=== PATIENT | female | born 1970 | race Caucasian/White ===

== ENCOUNTER → 2016-03-20 | Outpatient (CLI) | payer OTHER ==
--- NOTE | 2016-03-20 13:08 | MR ---
EXAMINATION TYPE: MR pelvis wo/w con DATE OF EXAM: 03/20/2016 8:52 AM COMPARISON: NONE HISTORY: pelvic girdle pain CONTRAST: Standard multiplanar, multisequence MRI departmental protocol utilizing 19 mL intravenous MultiHance gadolinium contrast. FINDINGS: The uterus is anteflexed and measures 10 cm in craniocaudal dimension by 4.6 cm. Endometria l stripe measures 6 mm. No uterine masses are identified. Cervical nabothian cyst is identified which measures 6.2 mm. No evidence for solid ovarian or adnexal mass. Small functional ovarian cysts are n oted bilaterally in measuring 1.6 cm on the left and up to 2 cm on the right. There is no evidence fo r free fluid. Following contrast administration no pathologic enhancement is identified. No uterine m ass is seen. Within the pelvis the urinary bladder has a normal appearance. There is no evidence for pelvic adenopathy. IMPRESSION: 1. Functional ovarian cysts. 2. Small cervical nabothian cyst.
== END | disposition home or self-care (01) ==
LOC: RADMRIMAIN 07:29
PROVIDERS: ATTEND Family Medicine
DX: N83.202 Unspecified ovarian cyst, left side (principal); N83.201 Unspecified ovarian cyst, right side; N88.8 Other specified noninflammatory disorders of cervix uteri
CPT/HCPCS: 72197; A9577

== ENCOUNTER → 2016-04-23 | Outpatient (CLI) | payer OTHER ==
--- NOTE | 2016-04-23 12:37 | MR ---
EXAMINATION TYPE: MR lumbar spine wo con DATE OF EXAM: 04/23/2016 9:57 AM COMPARISON: NONE HISTORY: Low back pain TECHNIQUE: Multiplanar, multisequence images of the lumbar spine were acquired. L1-L2: Normal disc appearance without desiccation. No herniation, protrusion or disc bulging. No ca nal stenosis is present. Foramina are patent bilaterally. L2-L3: Normal disc appearance without desiccation. No herniation, protrusion or disc bulging. No ca nal stenosis is present. Foramina are patent bilaterally. L3-L4: Minimal disc bulge causes only slight anterior mass effect on the thecal sac. L4-L5: Scoliosis contributes to cause a left-sided foraminal encroachment, circumferential extension of endplate disc complex is present. There is facet arthropathy with hypertrophy of the ligamentum fl avum encroaching on the lateral recesses. Disc bulge causes only minimal anterior mass effect on the thecal sac. L5-S1: There is a posterior disc herniation causing mass effect on the anterior thecal sac and possib ly contacting the proximal S1 nerve roots. No significant central stenosis, there is circumferential extension towards the right neural foramen, endplate disc complex results in some right-sided foramin al encroachment. Lumbar segments are intact. No paraspinal masses are identified. Conus medullaris has a normal appe arance. There is loss of disc height and signal at L4-5, endplate discogenic marrow signal change wit h associated spondylosis is noted. There is a scoliosis centered at the lower lumbar spine L4-5. IMPRESSION: Degenerative disc disease, scoliosis, facet arthropathy and foraminal encroachment as described.
== END | disposition home or self-care (01) ==
LOC: RADMRIMAIN 09:04
PROVIDERS: ATTEND Psychiatry & Neurology Neurology
DX: M51.36 Other intervertebral disc degeneration, lumbar region (principal); M46.96 Unspecified inflammatory spondylopathy, lumbar region; M41.9 Scoliosis, unspecified
CPT/HCPCS: 72148

== ENCOUNTER → 2018-06-20 | Outpatient (CLI) | payer OTHER ==
--- NOTE | 2018-06-20 15:37 | US ---
EXAMINATION TYPE: US pelvis complete transvag DATE OF EXAM: 06/20/2018 COMPARISON: NONE CLINICAL HISTORY: N92.6 Irregular menstruation, R10.30. Pelvic pain during menses, ablation 2 years a go TECHNIQUE: Transvaginal (TV) and Transabdominal (TA) . Transabdominal sonographic images of the pel vis were acquired. Transvaginal sonographic images were medically necessary to better assess the fol lowing anatomy: uterus and ovaries Date of LMP: 06/13/18 EXAM MEASUREMENTS: Uterus: 9.5 x 3.6 x 5.0 cm Endometrial Stripe: 0.5 cm Right Ovary: 2.8 x 1.6 x 1.7 cm Left Ovary: 4.4 x 2.1 x 2.4 cm 1. Uterus: Anteverted heterogeneous 2. Endometrium: appears wnl as visualized 3. Right Ovary: appears wnl 4. Left Ovary: cystic area = 3.0 x 1.9 x 2.6cm 5. Bilateral Adnexa: tubular structure adjacent to left ovary 6. Posterior cul-de-sac: appears wnl IMPRESSION: 1. Left ovarian cyst. Follow-up following the next normal menstrual period or 6 weeks is recommended.
== END | disposition home or self-care (01) ==
LOC: RADUSWWP 14:41
PROVIDERS: ATTEND Family Medicine
DX: N83.202 Unspecified ovarian cyst, left side (principal)
CPT/HCPCS: 76830; 76856

== ENCOUNTER 2019-02-27 14:31 | Emergency (ER) | payer OTHER ==
[2019-02-27 14:43] VITALS: TEMP 98.3
--- NOTE | 2019-02-27 15:06 | ED ---
General Adult HPI - General Chief complaint: Neuro Symptoms/Deficit Stated complaint: weakness Time Seen by Provider: 02/27/19 14:53 Source: patient, EMS, RN notes reviewed Mode of arrival: EMS Limitations: no limitations - History of Present Illness Initial comments: Patient is a pleasant 48-year-old female presenting to the emergency department with complaints of left-sided paresthesias. Onset of symptoms was around 1 or 1:15. Patient felt odd sensation/numbness of her left arm that extended up towards the neck and head. Symptoms lasted around 20 minutes then resolved. Patient did see some bright lights with the left side of her vision. Patient does have headache that is not severe, rated 4/10. Patient feels her left arm was a little bit weak earlier however this has resolved. Patient states she dropped her phone accidentally from her left arm. Patient has not noticed any leg weakness. No history of similar symptoms previously. Patient states she her grandmother did have a stroke at her age. Patient states also there is another family member with history of aneurysm - Related Data Home Medications Medication Instructions Recorded Confirmed Cyclobenzaprine [Flexeril] 10 mg PO TID PRN 03/28/15 05/05/15 Escitalopram [Lexapro] 20 mg PO HS 03/28/15 05/05/15 Levothyroxine Sodium [Synthroid] 75 mcg PO QAM 03/28/15 05/05/15 Meloxicam 15 mg PO DAILY 03/28/15 05/05/15 Norethindrone-E.estradiol-Iron 1 each PO HS 03/28/15 05/05/15 [Microgestin 24 Fe 1 mg-20 Mcg] traMADol HCl [Ultram] 50 mg PO Q6H PRN 03/28/15 05/05/15 Atorvastatin [Lipitor] 10 mg PO HS 03/31/15 05/05/15 Iron (Unknown Dose) 1 tab PO DAILY 05/02/15 05/05/15 Allergies Allergy/AdvReac Type Severity Reaction Status Date / Time No Known Allergies Allergy Verified 05/05/15 07:53 Review of Systems ROS Statement: Those systems with pertinent positive or pertinent negative responses have been documented in the HPI. ROS Other: All systems not noted in ROS Statement are negative. Constitutional: Denies: fever Eyes: Denies: eye pain ENT: Denies: ear pain Respiratory: Denies: cough Cardiovascular: Denies: chest pain Endocrine: Denies: fatigue Gastrointestinal: Denies: abdominal pain Genitourinary: Denies: dysuria Musculoskeletal: Denies: back pain Skin: Denies: rash Neurological: Reports: as per HPI Past Medical History Past Medical History: Hyperlipidemia, Musculoskeletal Disorder, Thyroid Disorder Additional Past Medical History / Comment(s): VARICOSE VEINS REMOVED, MENORRHAGIA WITH ANEMIA, DDD WITH BACK PAIN AND ARTHRITIS IN BACK AND RIGHT HIP. PSORIASIS, LOW THYROID., HX OF INFECTION IN RIGHT HIP BONE AND RECEIVED IV ANTIBIOTICS FOR 22 WEEKS. History of Any Multi-Drug Resistant Organisms: None Reported Past Surgical History: Cholecystectomy Additional Past Surgical History / Comment(s): BONE BX, INFUSA -PORT PLACED AND REMOVED. Past Anesthesia/Blood Transfusion Reactions: No Reported Reaction, Motion Sickness Past Psychological History: Anxiety, Depression Smoking Status: Former smoker Past Alcohol Use History: Rare Past Drug Use History: None Reported - Past Family History Mother Family Medical History: Cancer General Exam Limitations: no limitations General appearance: alert, in no apparent distress Head exam: Present: atraumatic, normocephalic Eye exam: Present: normal appearance, PERRL, EOMI ENT exam: Present: normal oropharynx Neck exam: Present: normal inspection Respiratory exam: Present: normal lung sounds bilaterally Cardiovascular Exam: Present: regular rate, normal rhythm GI/Abdominal exam: Present: soft. Absent: tenderness Extremities exam: Present: normal inspection Neurological exam: Present: alert, oriented X3, CN II-XII intact Expanded Neurological exam: Present: protecting the airway Speech: Present: fluid speech Cranial nerves: EOM's Intact: Normal, Facial Sensation: Normal Sensory exam: Upper Extremity Light Touch: Normal, Lower Extremity Light Touch: Normal Motor strength exam: RUE: 5, LUE: 5, RLE: 5, LLE: 4 Eye Response: (4) open spontaneously Motor Response: (6) obeys commands Verbal Response: (5) oriented Psychiatric exam: Present: normal affect, normal mood Skin exam: Present: normal color Course Vital Signs 02/27/19 14:40 Temperature 98.3 F Pulse Rate 63 Respiratory 19 Rate Blood Pressure 125/82 O2 Sat by Pulse 99 Oximetry - Reevaluation(s) Reevaluation #1: 02/27/19 15:03 Case was discussed with Dr. polo who agrees patient is not a TPA candidate secondary to low NIH score. He is aware of patient's need for transfer to [place]. 02/27/19 16:34 Patient reevaluated and unchanged. Still with minimal drift of left leg. Patient family updated on results and plan. Case was also discussed with Dr. Duval at [facility], who will accept transfer. EKG Findings - EKG Comments: EKG Findings:: Normal sinus rhythm 60. NM 164. QRS 84. QT 418. QTC 418. Normal axis. Normal QRS. No acute ST change. Medical Decision Making - Lab Data Result diagrams: 02/27/19 14:45 02/27/19 14:45 Lab Results 02/27/19 02/27/19 02/27/19 Range/Units 14:45 14:45 14:45 WBC 5.9 (3.8-10.6) k/uL RBC 4.12 (3.80-5.40) m/uL Hgb 12.0 (11.4-16.0) gm/dL Hct 36.4 (34.0-46.0) % MCV 88.4 (80.0-100.0) fL MCH 29.1 (25.0-35.0) pg MCHC 32.9 (31.0-37.0) g/dL RDW 13.4 (11.5-15.5) % Plt Count 199 (150-450) k/uL Neutrophils % 64 % Lymphocytes % 27 % Monocytes % 5 % Eosinophils % 2 % Basophils % 0 % Neutrophils # 3.8 (1.3-7.7) k/uL Lymphocytes # 1.6 (1.0-4.8) k/uL Monocytes # 0.3 (0-1.0) k/uL Eosinophils # 0.1 (0-0.7) k/uL Basophils # 0.0 (0-0.2) k/uL PT 10.9 (9.0-12.0) sec INR 1.0 (<1.2) APTT 23.1 (22.0-30.0) sec Sodium 139 (137-145) mmol/L Potassium 4.0 (3.5-5.1) mmol/L Chloride 108 H (98-107) mmol/L Carbon Dioxide 25 (22-30) mmol/L Anion Gap 6 mmol/L BUN 16 (7-17) mg/dL Creatinine 0.78 (0.52-1.04) mg/dL Est GFR (CKD-EPI)AfAm >90 (>60 ml/min/1.73 sqM) Est GFR (CKD-EPI)NonAf >90 (>60 ml/min/1.73 sqM) Glucose 89 (74-99) mg/dL Calcium 9.1 (8.4-10.2) mg/dL Total Bilirubin 0.6 (0.2-1.3) mg/dL AST 17 (14-36) U/L ALT 11 (4-34) U/L Alkaline Phosphatase 63 (38-126) U/L Total Creatine Kinase (30-135) U/L CK-MB (CK-2) (0.0-2.4) ng/mL CK-MB (CK-2) Rel Index Troponin I (0.000-0.034) ng/mL Total Protein 6.1 L (6.3-8.2) g/dL Albumin 3.8 (3.5-5.0) g/dL 02/27/19 Range/Units 14:45 WBC (3.8-10.6) k/uL RBC (3.80-5.40) m/uL Hgb (11.4-16.0) gm/dL Hct (34.0-46.0) % MCV (80.0-100.0) fL MCH (25.0-35.0) pg MCHC (31.0-37.0) g/dL RDW (11.5-15.5) % Plt Count (150-450) k/uL Neutrophils % % Lymphocytes % % Monocytes % % Eosinophils % % Basophils % % Neutrophils # (1.3-7.7) k/uL Lymphocytes # (1.0-4.8) k/uL Monocytes # (0-1.0) k/uL Eosinophils # (0-0.7) k/uL Basophils # (0-0.2) k/uL PT (9.0-12.0) sec INR (<1.2) APTT (22.0-30.0) sec Sodium (137-145) mmol/L Potassium (3.5-5.1) mmol/L Chloride (98-107) mmol/L Carbon Dioxide (22-30) mmol/L Anion Gap mmol/L BUN (7-17) mg/dL Creatinine (0.52-1.04) mg/dL Est GFR (CKD-EPI)AfAm (>60 ml/min/1.73 sqM) Est GFR (CKD-EPI)NonAf (>60 ml/min/1.73 sqM) Glucose (74-99) mg/dL Calcium (8.4-10.2) mg/dL Total Bilirubin (0.2-1.3) mg/dL AST (14-36) U/L ALT (4-34) U/L Alkaline Phosphatase (38-126) U/L Total Creatine Kinase 59 (30-135) U/L CK-MB (CK-2) 0.2 (0.0-2.4) ng/mL CK-MB (CK-2) Rel Index 0.3 Troponin I <0.012 (0.000-0.034) ng/mL Total Protein (6.3-8.2) g/dL Albumin (3.5-5.0) g/dL - Radiology Data Radiology results: report reviewed (Computed tomography scan the brain shows no acute process. CTA of the brain and neck shows no acute process, dominant left vertebral artery.) Disposition Clinical Impression: Cerebrovascular accident (CVA) Disposition: OTHER INSTITUTION NOT DEFINED Is patient prescribed a controlled substance at d/c from ED?: No Referrals: Madeline Mina MD [Primary Care Provider] - 1-2 days Time of Disposition: 16:35 - Out of Hospital Transfer - Req. Specs Out of Hospital Transfer - Requested Specifics: Other Emergency Center
[2019-02-27 15:22] LABS: Basophils % (A) 0 %; Eosinophils # (A) 0.1 k/uL (0-0.7); Eosinophils % (A) 2 %; HCT 36.4 % (34.0-46.0); Lymphocytes # (A) 1.6 k/uL (1.0-4.8); Lymphocytes % (A) 27 %; MCH 29.1 pg (25.0-35.0); MCHC 32.9 g/dL (31.0-37.0); MCV 88.4 fL (80.0-100.0); Mean Platelet Volume 8.8; Monocytes # (A) 0.3 k/uL (0-1.0); Monocytes % (A) 5 %; Neutrophils # (A) 3.8 k/uL (1.3-7.7); Neutrophils % (A) 64 %; Platelet Count 199 k/uL (150-450); RBC 4.12 m/uL (3.80-5.40); RDW 13.4 % (11.5-15.5); WBC 5.9 k/uL (3.8-10.6)
--- NOTE | 2019-02-27 15:24 | CT ---
EXAMINATION TYPE: CT brain wo con for TPA DATE OF EXAM: 02/27/2019 COMPARISON: None INDICATION: Headache DLP: 1081 mGycm, Automated exposure control for dose reduction was used. CONTRAST: None CT of the brain is performed utilizing 3 mm thick sections through the posterior fossa and 3 mm thick sections through the remaining calvarium. Study is performed within 24 hours of arrival to the hosp ital. No abnormal hyperdensity is present to suggest an acute intracranial hemorrhage. No mass lesion is evident. No acute infarcts are evident. Ventricles and sulci are appropriate for the patient age. Paranasal sinuses and mastoid air cells within the [id number] are clear. IMPRESSIONS: 1. Normal CT Brain
[2019-02-27 15:32] LABS: ALT 11 U/L (4-34); AST 17 U/L (14-36); African American GFR (CKD) >90 (>60 ml/min/1.73 sqM); Albumin 3.8 g/dL (3.5-5.0); Alkaline Phosphatase 63 U/L (38-126); Anion Gap 6 mmol/L; Blood Urea Nitrogen 16 mg/dL (7-17); Calcium 9.1 mg/dL (8.4-10.2); Carbon Dioxide 25 mmol/L (22-30); Chloride 108 mmol/L (98-107); Glucose 89 mg/dL (74-99); Non-African American GFR(CKD) >90 (>60 ml/min/1.73 sqM); Sodium 139 mmol/L (137-145); Total Bilirubin 0.6 mg/dL (0.2-1.3); Total Protein 6.1 g/dL (6.3-8.2)
[2019-02-27 15:35] LABS: Creatine Kinase 59 U/L (30-135)
--- NOTE | 2019-02-27 15:41 | CT ---
EXAMINATION TYPE: CT angio head neck DATE OF EXAM: 02/27/2019 COMPARISON: Correlation CT brain same day HISTORY: 48-year-old female with neurologic deficits, acute stroke suspected, headache TECHNIQUE: Contiguous axial scanning of the head and neck performed with IV Contrast, patient injecte d with 65 mL of Isovue 370. Coronal/sagittal MIP reconstructions performed. 3-D reconstructions gener ated on a dedicated workstation. CT DLP: 527.8 mGycm Automated exposure control for dose reduction was used. FINDINGS: NECK: Conventional arch vessel branching anatomy. Left vertebral artery is dominant. Both vertebral arteries are patent throughout the course. The bilateral common and internal carotid arteries are patent. No significant atherosclerotic change seen. HEAD: Dominant left vertebral artery. The vertebral, basilar, and internal carotid arteries are patent. 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 Both anterior and posterior circulations are patent. No aneurysmal change is seen. IMPRESSION: 1. NECK: WIDELY PATENT VERTEBRAL AND CAROTID ARTERIES OF THE NECK. 2. HEAD: NO LARGE VESSEL INTRACRANIAL ARTERIAL OCCLUSION, SIGNIFICANT STENOSIS, OR ANEURYSMAL CHANGE SEEN. INCIDENTAL DOMINANT LEFT VERTEBRAL ARTERY.
[2019-02-27 15:48] LABS: Creatine Kinase MB 0.2 ng/mL (0.0-2.4); Troponin I <0.012 ng/mL (0.000-0.034)
[2019-02-27 16:03] LABS: Partial Thromboplastin Time 23.1 sec (22.0-30.0); Prothrombin Time 10.9 sec (9.0-12.0)
[2019-02-27] MEDS ORDERED: ASPIRIN 81 MG PO STA (16:42)
[2019-02-27 16:44] VITALS: BP 117/77; PULSE 61; RESP 17
--- NOTE | 2019-02-27 16:47 | XR ---
EXAMINATION TYPE: XR chest 2V DATE OF EXAM: 02/27/2019 COMPARISON: None INDICATION: Altered mental status TECHNIQUE: Frontal and lateral views of the chest are obtained. FINDINGS: The heart size is normal. The pulmonary vasculature is normal. The lungs are clear. IMPRESSION: 1. No acute pulmonary process.
== END 2019-02-27 17:53 | disposition other institution (70) ==
LOC: EC 14:31
DX: I63.9 Cerebral infarction, unspecified (principal); E07.9 Disorder of thyroid, unspecified; F41.9 Anxiety disorder, unspecified; F32.9 Major depressive disorder, single episode, unspecified; E78.5 Hyperlipidemia, unspecified; Z79.1 Long term (current) use of non-steroidal anti-inflammatories (NSAID); Z79.3 Long term (current) use of hormonal contraceptives; Z79.899 Other long term (current) drug therapy; Z87.891 Personal history of nicotine dependence
CPT/HCPCS: 36415; 93005; 80053; 82550; 82553; 84484; 85025; 85610; 85730; 71046; 70496; 70450; 70498; 99285; Q9967

== ENCOUNTER 2019-10-05 13:32 | Emergency (ER) | payer OTHER ==
[2019-10-05 13:37] VITALS: BP 138/83; PULSE 74; RESP 20; TEMP 98.2
--- NOTE | 2019-10-05 14:39 | ED ---
General Adult HPI - General Chief complaint: Skin/Abscess/Foreign Body Stated complaint: Bug Bite/Facial Abscess Time Seen by Provider: 10/05/19 14:09 Source: patient, RN notes reviewed Mode of arrival: ambulatory Limitations: no limitations - History of Present Illness Initial comments: 49-year-old female presents to the emergency department for a chief complaint of abscess to the face. Patient states she has a bump on the right side of her cheek. States it is red and swollen. States she was camping over the weekend when she noticed this. It started a couple days ago that has gotten worse. Denies any swelling or pain in the eye. Denies fevers or chills. Denies any drainage.Patient has no other complaints at this time including shortness of breath, chest pain, abdominal pain, nausea or vomiting, headache, or visual changes. - Related Data Home Medications Medication Instructions Recorded Confirmed Cyclobenzaprine [Flexeril] 10 mg PO TID PRN 03/28/15 05/05/15 Escitalopram [Lexapro] 20 mg PO HS 03/28/15 05/05/15 Levothyroxine Sodium [Synthroid] 75 mcg PO QAM 03/28/15 05/05/15 Meloxicam 15 mg PO DAILY 03/28/15 05/05/15 Norethindrone-E.estradiol-Iron 1 each PO HS 03/28/15 05/05/15 [Microgestin 24 Fe 1 mg-20 Mcg] traMADol HCl [Ultram] 50 mg PO Q6H PRN 03/28/15 05/05/15 Atorvastatin [Lipitor] 10 mg PO HS 03/31/15 05/05/15 Iron (Unknown Dose) 1 tab PO DAILY 05/02/15 05/05/15 Previous Rx's Medication Instructions Recorded Cephalexin [Keflex] 500 mg PO Q6H 10 Days #40 cap 10/05/19 Sulfamethox-Tmp 800-160Mg [Bactrim 1 tab PO Q12HR #20 tab 10/05/19 DS 800-160 mg] Allergies Allergy/AdvReac Type Severity Reaction Status Date / Time Penicillins Allergy Rash/Hives Verified 10/05/19 13:37 Review of Systems ROS Statement: Those systems with pertinent positive or pertinent negative responses have been documented in the HPI. ROS Other: All systems not noted in ROS Statement are negative. 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 PSORIASIS, LOW THYROID., HX OF INFECTION IN RIGHT HIP BONE AND RECEIVED IV ANTIBIOTICS FOR 22 WEEKS. History of Any Multi-Drug Resistant Organisms: None Reported Past Surgical History: Cholecystectomy Additional Past Surgical History / Comment(s): BONE BX, INFUSA -PORT PLACED AND REMOVED. Past Anesthesia/Blood Transfusion Reactions: No Reported Reaction, Motion Sickness Past Psychological History: Anxiety, Depression Smoking Status: Former smoker Past Alcohol Use History: Rare Past Drug Use History: None Reported - Past Family History Mother Family Medical History: Cancer General Exam Limitations: no limitations General appearance: alert, in no apparent distress Head exam: Present: atraumatic, normocephalic, normal inspection Eye exam: Present: normal appearance, PERRL, EOMI. Absent: scleral icterus, conjunctival injection, periorbital swelling, periorbital tenderness ENT exam: Present: normal exam, normal oropharynx, mucous membranes moist, TM's normal bilaterally, normal external ear exam Neck exam: Present: normal inspection, full ROM. Absent: tenderness, meningismus, lymphadenopathy Respiratory exam: Present: normal lung sounds bilaterally. Absent: respiratory distress, wheezes, rales, rhonchi, stridor Cardiovascular Exam: Present: regular rate, normal rhythm, normal heart sounds. Absent: systolic murmur, diastolic murmur, rubs, gallop, clicks Skin exam: Present: other (patient has about 2 cm x 1 cm area of induration and erythema noted below the right eye. This does not involve the eye. There is no periorbital edema. ) Course Vital Signs 10/05/19 13:35 Temperature 98.2 F Pulse Rate 74 Respiratory 20 Rate Blood Pressure 138/83 O2 Sat by Pulse 100 Oximetry Medical Decision Making - Medical Decision Making 18-gauge needle was used to incise this area, no purulent drainage. This is likely a developing abscess. Patient was started on antibiotics and do warm compresses. I did discuss strict return parameters for patient including any pain in the eye. Disposition Clinical Impression: Abscess Disposition: HOME SELF-CARE Condition: Good Instructions (If sedation given, give patient instructions): Abscess (ED) Additional Instructions: Please take antibiotics as directed. apply warm compresses for 20 minutes every couple hours. Follow up with primary care in 1-2 days. Return to the emergency room if you have any worsening symptoms such as fevers or pain in the eye. Prescriptions: Sulfamethox-Tmp 800-160Mg [Bactrim DS 800-160 mg] 1 tab PO Q12HR #20 tab Cephalexin [Keflex] 500 mg PO Q6H 10 Days #40 cap Is patient prescribed a controlled substance at d/c from ED?: No Referrals: Madeline Mina MD [Primary Care Provider] - 1-2 days Time of Disposition: 14:37
== END 2019-10-05 14:45 | disposition home or self-care (01) ==
LOC: EC 13:32
DX: L02.01 Cutaneous abscess of face (principal); F41.9 Anxiety disorder, unspecified; F32.9 Major depressive disorder, single episode, unspecified; E78.5 Hyperlipidemia, unspecified; E07.9 Disorder of thyroid, unspecified; Z79.890 Hormone replacement therapy; Z79.1 Long term (current) use of non-steroidal anti-inflammatories (NSAID); Z79.3 Long term (current) use of hormonal contraceptives; Z88.0 Allergy status to penicillin; Z86.73 Personal history of transient ischemic attack (TIA), and cerebral infarction without residual deficits; Z87.891 Personal history of nicotine dependence
CPT/HCPCS: 99282

== ENCOUNTER → 2020-09-29 | Outpatient (CLI) | payer BC ==
--- NOTE | 2020-10-03 11:34 | MM ---
Reason for exam: screening (asymptomatic). Last mammogram was performed 13 years and 10 months ago. History: Family history of breast cancer in paternal grandmother. Benign stereotactic core biopsy of both breasts, 2013. Physical Findings: A clinical breast exam by your physician is recommended on an annual basis and results should be correlated with mammographic findings. MG 3D Screening Mammo W/Cad Bilateral CC and MLO view(s) were taken. No prior studies available for comparison. There are scattered fibroglandular densities. High density nodule central right MLO has no CC correlate. Spot views recommended. Density superior left MLO view becomes more defined on 3D. Left square marker to indicate new dimpling. ASSESSMENT: Incomplete: need additional imaging evaluation, BI-RAD 0 RECOMMENDATION: Special view mammogram of both breasts. (3D) If lesion persists on supplemental views, image directed ultrasound is recommended. [facility] will attempt to contact patient to return for supplemental views and ultrasound if indicated.
== END | disposition home or self-care (01) ==
LOC: RADMAMWWP 14:09
PROVIDERS: ATTEND Family Medicine
DX: Z12.31 Encounter for screening mammogram for malignant neoplasm of breast (principal); Z80.3 Family history of malignant neoplasm of breast
CPT/HCPCS: 77063; 77067

== ENCOUNTER → 2020-10-10 | Outpatient (CLI) | payer BC ==
--- NOTE | 2020-10-10 11:50 | MM ---
Reason for exam: additional evaluation requested from abnormal screening. Last mammogram was performed less than 1 month ago. History: Family history of breast cancer in paternal grandmother. Benign stereotactic core biopsy of both breasts, 2004. Physical Findings: Nurse did not find any significant physical abnormalities on exam. MG 3D Work Up W/Cad DONOVAN Bilateral LM and spot compression MLO view(s) were taken. Prior study comparison: September 29, 2020, bilateral MG 3d screening mammo w/cad. There are scattered fibroglandular densities. Patient reported dimpling lower inner quadrant left breast, no persisting abnormality, ultrasound recommended. Nodular asymmetry persists central right MLO and lateral view. Ultrasound recommended. No CC correlate. These results were verbally communicated with the patient and result sheet given to the patient on 10/10/20. ASSESSMENT: Incomplete: need additional imaging evaluation, BI-RAD 0 RECOMMENDATION: Ultrasound of both breasts. (right 3 o'clock and 9 o'clock, left lower inner quadrant)
--- NOTE | 2020-10-10 11:53 | USB ---
Reason for exam: additional evaluation requested from abnormal screening. History: Family history of breast cancer in paternal grandmother. Benign stereotactic core biopsy of both breasts, 2004. US Breast Workup Limited DONOVAN Right limited breast ultrasound including focal area of concern, retroareolar and axilla demonstrates a 4 x 2 x 6mm lobular, cystic lesion at 9 o'clock, possible mammographic correlated. 6 month follow up mammogram recommended. Scanned 3 o'clock and 9 o'clock. Left limited breast ultrasound including focal area of concern, retroareolar and axilla demonstrates no cystic or solid lesion seen. Scanned 6-9 o'clock. Clinical follow up for any suspicious dimpling. These results were verbally communicated with the patient and result sheet given to the patient on 10/10/20. ASSESSMENT: Probably benign, BI-RAD 3 RECOMMENDATION: Follow-up diagnostic mammogram of the right breast in 6 months. Manage on a clinical basis with regard to any suspicious left sided skin dimpling.
== END | disposition home or self-care (01) ==
LOC: RADMAMWWP 09:03
PROVIDERS: ATTEND Family Medicine
DX: N64.89 Other specified disorders of breast (principal); N60.01 Solitary cyst of right breast; Z80.3 Family history of malignant neoplasm of breast
CPT/HCPCS: 77062; 77066

== ENCOUNTER 2021-11-09 06:53 | Emergency (ER) | payer BC ==
[2021-11-09] MEDS ORDERED: SODIUM CHLORIDE 0.9% 1,000 ML IV STA (07:41)
[2021-11-09] MEDS ORDERED: ASPIRIN 81 MG PO STA (07:41)
[2021-11-09] MEDS ORDERED: ALPRAZolam 0.25 MG TAB PO STA (07:42)
[2021-11-09] MEDS ORDERED: KETOROLAC 15 MG/ML 1 ML VIAL IVP STA (07:42)
[2021-11-09] MEDS ORDERED: ONDANSETRON 4 MG/2 ML VIAL IVP STA (07:53)
--- NOTE | 2021-11-09 07:56 | ED ---
General Adult HPI - General Chief complaint: Extremity Problem,Nontraumatic Stated complaint: Right Hand numbness, HBP, Nausea Time Seen by Provider: 11/09/21 07:20 Source: patient, RN notes reviewed, old records reviewed Mode of arrival: ambulatory Limitations: no limitations - History of Present Illness Initial comments: Patient is a 51-year-old female with past medical history remarkable for anxiety, TIAs, thyroid disorder, hyperlipidemia who presents emergency Department complaining of right arm paresthesias as well as elevated blood pressure this morning. States she awoke approximately 4 AM, had chest pain/palpitations, felt that her lower right arm was tingly extending from the elbow to the fingertips. Denied any weakness or other sensory deficits at that time. States her blood pressure was elevated and she was tachycardic at that time as well. Came to the emergency department for further evaluation. Denies any current chest pain. States that resolved shortly after presentation earlier this morning. States that the paresthesias are resolving. Currently has no acute complaints at this time. Presents over concern for possible stroke or heart attack. Patient appears anxious. Denies any current chest pain, shortness breath, abdominal pain, nausea, vomiting. Denies any abdominal pain. Does endorse some mild nausea. Denies any episodes of emesis. Has no other acute complaints at this time. Presents for further evaluation at this time. She normally is on Xanax for anxiety but has not taken it in quite some time.Her only current complaint is bilateral shoulder stiffness. - Related Data Home Medications Medication Instructions Recorded Confirmed Cyclobenzaprine [Flexeril] 10 mg PO TID PRN 03/28/15 05/05/15 Escitalopram [Lexapro] 20 mg PO HS 03/28/15 05/05/15 Levothyroxine Sodium [Synthroid] 75 mcg PO QAM 03/28/15 05/05/15 Meloxicam 15 mg PO DAILY 03/28/15 05/05/15 norethindrone-e.estradioL-iron 1 each PO HS 03/28/15 05/05/15 [Microgestin 24 Fe 1 mg-20 Mcg] traMADol HCl [Ultram] 50 mg PO Q6H PRN 03/28/15 05/05/15 Atorvastatin [Lipitor] 10 mg PO HS 03/31/15 05/05/15 Iron (Unknown Dose) 1 tab PO DAILY 05/02/15 05/05/15 Previous Rx's Medication Instructions Recorded Cephalexin [Keflex] 500 mg PO Q6H 10 Days #40 cap 10/05/19 Sulfamethox-Tmp 800-160Mg [Bactrim 1 tab PO Q12HR #20 tab 10/05/19 DS 800-160 mg] Allergies Allergy/AdvReac Type Severity Reaction Status Date / Time Penicillins Allergy Rash/Hives Verified 11/09/21 06:55 Review of Systems ROS Statement: Those systems with pertinent positive or pertinent negative responses have been documented in the HPI. Review of Systems: CONST: Denies fever EYES: Denies blurry vision ENT: Denies nasal congestion C/V: Denies Chest pain RESP: Denies shortness of breath GI: Denies abdominal pain : Denies dysuria SKIN: Denies rash. MSK: Denies joint pain. NEURO: Denies headache ROS Other: All systems not noted in ROS Statement are negative. 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 PSORIASIS, LOW THYROID., HX OF INFECTION IN RIGHT HIP BONE AND RECEIVED IV ANTIBIOTICS FOR 22 WEEKS. History of Any Multi-Drug Resistant Organisms: None Reported Past Surgical History: Cholecystectomy Additional Past Surgical History / Comment(s): BONE BX, INFUSA -PORT PLACED AND REMOVED. Past Anesthesia/Blood Transfusion Reactions: No Reported Reaction, Motion S ickness Past Psychological History: Anxiety, Depression Smoking Status: Former smoker Past Alcohol Use History: Rare Past Drug Use History: None Reported - Past Family History Mother Family Medical History: Cancer General Exam - General Exam Comments Initial Comments: General: Appears in no acute distress. HEAD: Normal with no signs of head trauma. EYES: PERRLA, EOMI, conjunctiva normal, no discharge. Pupils 3 mm and equal bilaterally. ENT: Hearing grossly intact, normal oropharynx. RESPIRATORY: Clear breath sounds bilaterally. No wheezes, rales, or rhonchi. C/V: Regular rate and rhythm. S1 and S2 auscultated, no edema, peripheral pulses 2+ and intact throughout. Patient does have a mild bradycardia which is seen on prior visits with heart rates in the low 60s previously. Patient's ranging from 50-60 in the room. ABD: Abd is soft, nontender, nondistended EXT: Normal range of motion, no obvious deformity. Mild tenderness to palpation over the bilateral trapezius muscles in both shoulders. SKIN: No rashes or lesions observed on exposed skin. NEURO: Alert and oriented x 4. Cranial nerves II-XII intact. No focal sensory or strength deficits. Cerebellar function intact as evident by normal finger to nose and heel to porter testing. Patient's subjective paresthesias or nonreproducible on palpation. No sensory deficits. NIH is 0. GCS is 15. Limitations: no limitations Course Vital Signs 11/09/21 11/09/21 11/09/21 06:55 07:15 08:30 Temperature 97.7 F Pulse Rate 55 L 50 L 47 L Respiratory 16 16 Rate Blood Pressure 153/85 133/89 127/83 O2 Sat by Pulse 100 96 100 Oximetry 11/09/21 11/09/21 11/09/21 09:00 09:30 10:26 Temperature 98.3 F Pulse Rate 46 L 57 L 56 L Respiratory 18 Rate Blood Pressure 123/73 122/81 132/58 O2 Sat by Pulse 98 100 99 Oximetry Medical Decision Making - Medical Decision Making Based on the patient's presentation and physical exam, I'm concerned for possible atypical presentation for ACS at this time. My concern is mild. Does appear to be anxiety related, however I would like to obtain basic cardiac labs, EKG, chest x-ray. She was in agreement this plan. NIH is 0. Symptoms all started at 5 AM. I've no concern for stroke at this time his symptoms are not reproducible. Patient's symptoms have always been the paresthesias which she states are present but appear to be subjective. I did discuss this at length with the patient and she was in agreement. States she is nearly back to baseline. No longer has chest pain. We'll receive an aspirin. She was in agreement this plan. Vital signs otherwise within normal limits. EKG shows no signs of acute ischemia. No new changes.Chest x-ray shows no acute cardio primary process. Laboratory studies are remarkable for an undetectable troponin. Remainder of her labs are within normal limits. On reevaluation, patient is feeling improved. I discussed with her the results of her negative workup. She is having subjective paresthesias primarily to the patient's right hand. The mother safer to be discharged home this time with follow-up with her PCP. She was in agreement this plan. NIH remains 0 at this time. We discussed that her symptoms may be related to anxiety. Recommended follow-up with her PCP. Heart score is low at 2-3. I instructed the patient to follow up with their PCP in the next 1-3 days. I explained that the patient should return to the emergency department if they experience any worsening symptoms. Strict return precautions were discussed with the patient. The patient expressed understanding of these instructions. I answered all questions that the patient had. The patient was discharged home in good condition with their prescriptions and follow up information. - Lab Data Result diagrams: 11/09/21 08:19 11/09/21 08:19 Lab Results 11/09/21 11/09/21 11/09/21 Range/Units 08:19 08:19 08:19 WBC 5.4 (3.8-10.6) k/uL RBC 4.39 (3.80-5.40) m/uL Hgb 14.0 (11.4-16.0) gm/dL Hct 41.1 (34.0-46.0) % MCV 93.6 (80.0-100.0) fL MCH 31.9 (25.0-35.0) pg MCHC 34.1 (31.0-37.0) g/dL RDW 12.9 (11.5-15.5) % Plt Count 189 (150-450) k/uL MPV 8.7 Neutrophils % 72 % Lymphocytes % 21 % Monocytes % 5 % Eosinophils % 2 % Basophils % 1 % Neutrophils # 3.9 (1.3-7.7) k/uL Lymphocytes # 1.1 (1.0-4.8) k/uL Monocytes # 0.3 (0-1.0) k/uL Eosinophils # 0.1 (0-0.7) k/uL Basophils # 0.0 (0-0.2) k/uL PT 10.9 (9.0-12.0) sec INR 1.0 (<1.2) APTT 26.0 (22.0-30.0) sec Sodium 141 (137-145) mmol/L Potassium 4.0 (3.5-5.1) mmol/L Chloride 104 (98-107) mmol/L Carbon Dioxide 28 (22-30) mmol/L Anion Gap 9 mmol/L BUN 22 H (7-17) mg/dL Creatinine 0.79 (0.52-1.04) mg/dL Est GFR (CKD-EPI)AfAm >90 (>60 ml/min/1.73 sqM) Est GFR (CKD-EPI)NonAf 89 (>60 ml/min/1.73 sqM) Glucose 103 H (74-99) mg/dL Calcium 9.1 (8.4-10.2) mg/dL Magnesium 2.0 (1.6-2.3) mg/dL Total Bilirubin 0.7 (0.2-1.3) mg/dL AST 24 (14-36) U/L ALT 18 (4-34) U/L Alkaline Phosphatase 79 (38-126) U/L Troponin I (0.000-0.034) ng/mL Total Protein 6.7 (6.3-8.2) g/dL Albumin 4.4 (3.5-5.0) g/dL 11/09/21 Range/Units 08:19 WBC (3.8-10.6) k/uL RBC (3.80-5.40) m/uL Hgb (11.4-16.0) gm/dL Hct (34.0-46.0) % MCV (80.0-100.0) fL MCH (25.0-35.0) pg MCHC (31.0-37.0) g/dL RDW (11.5-15.5) % Plt Count (150-450) k/uL MPV Neutrophils % % Lymphocytes % % Monocytes % % Eosinophils % % Basophils % % Neutrophils # (1.3-7.7) k/uL Lymphocytes # (1.0-4.8) k/uL Monocytes # (0-1.0) k/uL Eosinophils # (0-0.7) k/uL Basophils # (0-0.2) k/uL PT (9.0-12.0) sec INR (<1.2) APTT (22.0-30.0) sec Sodium (137-145) mmol/L Potassium (3.5-5.1) mmol/L Chloride (98-107) mmol/L Carbon Dioxide (22-30) mmol/L Anion Gap mmol/L BUN (7-17) mg/dL Creatinine (0.52-1.04) mg/dL Est GFR (CKD-EPI)AfAm (>60 ml/min/1.73 sqM) Est GFR (CKD-EPI)NonAf (>60 ml/min/1.73 sqM) Glucose (74-99) mg/dL Calcium (8.4-10.2) mg/dL Magnesium (1.6-2.3) mg/dL Total Bilirubin (0.2-1.3) mg/dL AST (14-36) U/L ALT (4-34) U/L Alkaline Phosphatase (38-126) U/L Troponin I <0.012 (0.000-0.034) ng/mL Total Protein (6.3-8.2) g/dL Albumin (3.5-5.0) g/dL - EKG Data -: EKG Interpreted by Me EKG Comments: 12-lead Electrocardiogram Interpretation Note EKG was reviewed and interpreted by myself. 12-lead ECG performed at 0711 is interpreted by me as revealing sinus bradycardia at a rate of 48 beats per minute. [place] is normal. ID interval is 168 ms, QRS duration is 91 ms, QTc is 380 ms.. There were no acute ST or T wave abnormalities to suggest myocardial ischemia or injury. Prior chronic T-wave inversion isolated in III. R wave progression across the precordium was satisfactory. By my interpretation this EKG is non-diagnostic for acute ischemia. Unchanged when compared to EKG from February 2019. Disposition Clinical Impression: Arm paresthesia, right, Anxiety Disposition: HOME SELF-CARE Condition: Good Instructions (If sedation given, give patient instructions): Anxiety (ED) Is patient prescribed a controlled substance at d/c from ED?: No Referrals: Madeline Mina MD [Primary Care Provider] - 1-2 days Time of Disposition: 09:50
[2021-11-09 08:32] LABS: Basophils % (A) 1 %; Eosinophils # (A) 0.1 k/uL (0-0.7); Eosinophils % (A) 2 %; HCT 41.1 % (34.0-46.0); Lymphocytes # (A) 1.1 k/uL (1.0-4.8); Lymphocytes % (A) 21 %; MCH 31.9 pg (25.0-35.0); MCHC 34.1 g/dL (31.0-37.0); MCV 93.6 fL (80.0-100.0); Mean Platelet Volume 8.7; Monocytes # (A) 0.3 k/uL (0-1.0); Monocytes % (A) 5 %; Neutrophils # (A) 3.9 k/uL (1.3-7.7); Neutrophils % (A) 72 %; Platelet Count 189 k/uL (150-450); RBC 4.39 m/uL (3.80-5.40); RDW 12.9 % (11.5-15.5); WBC 5.4 k/uL (3.8-10.6)
[2021-11-09 08:52] LABS: Prothrombin Time 10.9 sec (9.0-12.0)
--- NOTE | 2021-11-09 09:05 | XR ---
EXAMINATION TYPE: XR chest 2V DATE OF EXAM: 11/09/2021 COMPARISON: Prior chest x-ray report February 27, 2019.r HISTORY: Chest pain. TECHNIQUE: Frontal and lateral views of the chest are obtained. FINDINGS: There is no focal air space opacity, pleural effusion, or pneumothorax seen. The cardiac silhouette size is upper limits of normal. The osseous structures are intact. Cholecystectomy clips are present. IMPRESSION: No acute process.
[2021-11-09 09:21] LABS: ALT 18 U/L (4-34); AST 24 U/L (14-36); African American GFR (CKD) >90 (>60 ml/min/1.73 sqM); Albumin 4.4 g/dL (3.5-5.0); Alkaline Phosphatase 79 U/L (38-126); Anion Gap 9 mmol/L; Blood Urea Nitrogen 22 mg/dL (7-17); Calcium 9.1 mg/dL (8.4-10.2); Carbon Dioxide 28 mmol/L (22-30); Chloride 104 mmol/L (98-107); Glucose 103 mg/dL (74-99); Non-African American GFR(CKD) 89 (>60 ml/min/1.73 sqM); Sodium 141 mmol/L (137-145); Total Bilirubin 0.7 mg/dL (0.2-1.3); Total Protein 6.7 g/dL (6.3-8.2)
[2021-11-09 10:28] VITALS: BP 132/58; PULSE 56; RESP 18; TEMP 98.3
== END 2021-11-09 10:28 | disposition home or self-care (01) ==
LOC: EC 06:53
DX: R20.2 Paresthesia of skin (principal); F41.9 Anxiety disorder, unspecified; E78.5 Hyperlipidemia, unspecified; E07.9 Disorder of thyroid, unspecified; Z86.73 Personal history of transient ischemic attack (TIA), and cerebral infarction without residual deficits; F32.A Depression, unspecified; Z87.891 Personal history of nicotine dependence; Z88.0 Allergy status to penicillin; Z79.890 Hormone replacement therapy; Z79.899 Other long term (current) drug therapy
CPT/HCPCS: 36415; 80053; 83735; 84484; 85025; 85610; 85730; 71046; 99284; 96374; 96375; 96361; J2405; J1885

== ENCOUNTER → 2023-07-08 | Outpatient (CLI) | payer BC ==
--- NOTE | 2023-07-09 20:24 | MM ---
Reason for Exam: Screening (asymptomatic). Last mammogram was performed 1 year(s) and 3 month(s) ago. Patient History: Menarche at age 13. First Full-Term at age 20. 2004, Bilateral Benign Stereotactic Core Biopsy. Paternal grandmother had breast cancer, age 50. Risk Values: Candis 5 year model risk: 0.9%. NCI Lifetime model risk: 8.4%. Prior Study Comparison: 09/29/2020 Bilateral Screening Mammogram, [facility]. 10/10/2020 Bilateral Diagnostic Mammogram, [facility]. 04/17/2022 Bilateral MG 3D screening mammo w/cad, [facility]. Tissue Density: The breasts are almost entirely fatty. Findings: Analyzed By CAD. Chronic nodularity central right MLO view. Unchanged asymmetric density central outer aspect left cc view. There is no suspicious group of microcalcifications or new suspicious mass in either breast. Overall Assessment: Benign, BI-RAD 2 Management: Screening Mammogram of both breasts in 1 year. . Patient should continue monthly self-breast exams. A clinical breast exam by your physician is recommended on an annual basis. This exam should not preclude additional follow-up of suspicious palpable abnormalities. Note on Candis scores and lifetime risk: 1. A Candis score greater than 3% is considered moderate risk. If this is the case, consider specialist referral to assess eligibility for a risk reducing agent. 2. If overall lifetime risk for the development of breast cancer is 20% or higher, the patient may qualify for future screening with alternating mammogram and breast MRI. Electronically signed and approved by: Mary Lara M.D. Radiologist
== END | disposition home or self-care (01) ==
LOC: RADMAMWWP 16:42
PROVIDERS: ATTEND Family Medicine
DX: Z12.31 Encounter for screening mammogram for malignant neoplasm of breast (principal); Z80.3 Family history of malignant neoplasm of breast
CPT/HCPCS: 77063; 77067